=== PATIENT | female | born 2000 | race Hispanic/Latino ===

== ENCOUNTER 2023-01-11 15:03 | Emergency (ER) | payer OTHER, SELFPAY ==
[2023-01-11] MEDS ORDERED: Ketorolac Tromethamine 30 MG/ML VIAL ONE (15:27)
[2023-01-11] MEDS ORDERED: Morphine 4 MG/ML VIAL ONE (15:55)
[2023-01-11] MEDS ORDERED: PROPOFOL 20 ML ONE (16:11)
== END 2023-01-11 17:30 | disposition home or self-care (01) ==
LOC: CSHERS 15:03
DX: S53.125A Posterior dislocation of left ulnohumeral joint, initial encounter (principal); W18.30XA Fall on same level, unspecified, initial encounter; Y93.63 Activity, rugby; Y92.39 Other specified sports and athletic area as the place of occurrence of the external cause
CPT/HCPCS: 24600; 96372; 96374; 99152; J1885; J2270; J2704